=== PATIENT | female | born 1990 | race Caucasian/White ===

== ENCOUNTER 2016-09-26 09:16 | Day surgery (SDC) | payer OTHER ==
[~2016-09-26 09:16] MED LIST: ACETAMINOPHEN 1000MG/100 ML PREMIX IV ONE; FAMOTIDINE 20MG TABLET PO ONE; MECLIZINE 25 MG TABLET PO ONE; METOCLOPRAMIDE 10 MG TABLET PO ONE
[2016-09-26] MEDS ORDERED: BUPIVACAINE 0.25% W/EPI MPF 30ML VIAL IVP ONE (14:20)
[2016-09-26] MEDS ORDERED: HYDROMORPHONE HCL 2 MG/ML VIAL IV ONE ×2 (14:20→14:29)
[2016-09-26] MEDS ORDERED: ACETAMINOPHEN/CODEINE TABLET PO ONE (14:20)
[2016-09-26] MEDS ORDERED: SEVOFLURANE 250 ML INH ONE (14:29)
[2016-09-26] MEDS ORDERED: ONDANSETRON HCL IV 4 MG/2 ML VIAL IVP ONE (14:29)
[2016-09-26] MEDS ORDERED: KETOROLAC 30 MG/ML VIAL IVP ONE (14:29)
[2016-09-26] MEDS ORDERED: GLYCOPYRROLATE 0.2 MG/ML ML IV ONE (14:29)
[2016-09-26] MEDS ORDERED: SCOPOLAMINE 1 PATCH TDSY TD ONE (14:29)
[2016-09-26] MEDS ORDERED: FENTANYL PF 100MCG/2ML VIAL IV ONE (14:29)
[2016-09-26] MEDS ORDERED: LIDOCAINE 2% MDV (20MG/ML) 20ML VIAL IV ONE (14:29)
[2016-09-26] MEDS ORDERED: NEOSTIGMINE 1 MG/1 ML,10ML VIAL IV ONE (14:29)
[2016-09-26] MEDS ORDERED: PROPOFOL 10 MG/ML VIAL IV ONE (14:29)
[2016-09-26] MEDS ORDERED: MIDAZOLAM HCL 2MG/2ML VIAL IV ONE (14:29)
[2016-09-26] MEDS ORDERED: ROCURONIUM BROMIDE 50MG/5ML VIAL IV ONE (14:29)
[2016-09-26] MEDS ORDERED: SUCCINYLCHOLINE 20 MG/ML 10ML IVP ONE (14:29)
--- NOTE | 2016-09-27 11:20 | Operative Note ---
DATE OF SURGERY: 09/26/2016. SURGEON: Dimitrios Doran D.O. REFERRING PHYSICIAN: Nikos Lopez D.O. PREOPERATIVE DIAGNOSIS: ACROMIOCLAVICULAR ARTHROSIS OF THE LEFT SHOULDER. POSTOPERATIVE DIAGNOSIS: ACROMIOCLAVICULAR ARTHROSIS OF THE LEFT SHOULDER. OPERATIVE PROCEDURE: Keith procedure of the left shoulder (resection of the left distal clavicle). DESCRIPTION OF PROCEDURE: This 26-year-old female was taken to the operating room and was placed in the supine position on the operating room table. A general anesthetic was administered. The patient was then placed in the beach chair position with all bony prominences well padded and the head well secured. The left shoulder was prepped with Hibiclens and draped in the usual sterile fashion. An incision was made overlying the acromioclavicular joint. Dissection was carried down through the skin and subcutaneous tissue. Hemostasis was obtained with the electrocautery. Self-retaining retractor was placed to expose the joint capsule, and a "T" type incision was made in the joint capsule. Subperiosteal elevation was performed over the distal clavicle. An oscillating saw was subsequently used to resect approximately 3/4 of a centimeter of the distal clavicle. A power rasp was then used to further smooth and contour the cut edge of bone. We discovered that we had resected satisfactory bone. The remainder of the disrupted acromioclavicular disc was removed. The wound was irrigated with lactated ringers solution. The periosteum and joint capsule were repaired with #1 Vicryl, and the subcutaneous tissue was closed with 4-0 Vicryl. The skin was closed with a running subcuticular 4-0 nylon suture. Sterile dressings were applied. The patient was taken to the recovery room in satisfactory condition. GROSS PATHOLOGY: This patient demonstrated disruption of the acromioclavicular disc of the left shoulder which was removed in the manner described above. Job Number: [id number] [facility]
== END 2016-09-26 10:30 | disposition home or self-care (01) ==
LOC: SUR 09:16
PROVIDERS: ATTEND Orthopaedic Surgery
DX: M19.012 Primary osteoarthritis, left shoulder (principal)
CPT/HCPCS: 23120; 00450; 81025; J1885; J2405; J3010; J1170; J0330; J2710

== ENCOUNTER 2017-03-31 14:34 | Emergency (ER) | payer OTHER ==
--- NOTE | 2017-03-31 15:16 | Emergency Department Record ---
History of Present Illness - General Chief Complaint: Dizziness Stated Complaint: DIZZINESS,NAUSEA,LOWER BACK PAIN,TIFFANIE Time Seen by Provider: 03/31/17 15:03 Source: Patient, Family Mode of Arrival: Ambulatory Limitations: No limitations - History of Present Illness Initial Comments: 27 yo female presents with back pain, RUQ, nausea that started Friday. No injury. The pain has come on gradually. The pain was first noted in the lower back but then noted in the RUQ and right flank. She has associated nausea. No fever. No diarrhea. Her appetite is poor. No fevers. No history of abdominal surgery. She now feels weak, tired, lightheaded and dizzy as well. MD Complaint: Other (RUQ pain, Back Pain) Onset/Timin -: Days(s) Timing: Gradual onset Description: Nausea History of Same: No History of Trauma: No Severity: Moderate Improves With: Nothing Worsens With: Nothing Associated Symptoms: Fever/chills, Other - [place] Coma Scale Eye Response: (4) Open spontaneously Motor Response: (6) Obeys commands Verbal Response: (5) Oriented [place] Total: 15 - Symptoms of Stroke Symptoms of stroke: Dizziness - Related Data Home Medications Medication Instructions Recorded Confirmed Last Taken Allopurinol [Allopurinol] 100 mg PO DAILY 03/31/17 03/31/17 Unknown Cyclobenzaprine HCl [Flexeril] 10 mg PO ASDIR 03/31/17 03/31/17 03/31/17 Escitalopram Oxalate [Lexapro] 10 mg PO DAILY 03/31/17 03/31/17 Unknown Naproxen [Naproxen] 500 mg PO ASDIR 03/31/17 03/31/17 Unknown Allergies Allergy/AdvReac Type Severity Reaction Status Date / Time hydrocodone bitartrate AdvReac NAUSEA AND Verified 03/31/17 14:53 [From Vicodin] VOMITING latex AdvReac RASH Verified 03/31/17 14:53 Travel Screening - Travel/Exposure Within Last 30 Days Have you traveled within the last 30 days?: No Review of Systems Constitutional: Reports: Malaise, Weakness. Denies: Chills, Fever Eyes: Denies: Eye discharge, Eye pain, Photophobia, Vision change ENT: Denies: Congestion, Throat pain Respiratory: Denies: Cough, Dyspnea, Hemoptysis, Stridor, Wheezes Cardiovascular: Denies: Chest pain, Palpitations, Syncope Endocrine: Reports: Fatigue. Denies: Polydipsia, Polyuria Gastrointestinal: Reports: As per HPI, Abdominal pain, Nausea, Vomiting. Denies : Constipation, Diarrhea, Hematemesis, Hematochezia Genitourinary: Denies: Abnormal menses, Dysuria, Urgency Musculoskeletal: Reports: As per HPI, Back pain. Denies: Arthralgia, Joint swelling, Myalgia Skin: Denies: Bruising, Change in color, Rash Neurological: Denies: Headache, Numbness, Tremors, Vertigo, Weakness Psychiatric: Denies: Anxiety Hematological/Lymphatic: Denies: Blood Clots, Easy bleeding, Easy bruising, Swollen glands Past Medical History - SOCIAL HISTORY Smoking Status: Former smoker Alcohol Use: None Drug Use: None - RESPIRATORY Hx Respiratory Disorders: No - CARDIOVASCULAR Hx Cardio Disorders: Yes - NEURO Hx Neuro Disorders: Yes Hx of Migraines: Yes (WEEKLY OR MONTHLY REST OR EXCEDRINE MIGRAINE) - GI Hx GI Disorders: No - Hx Genitourinary Disorders: No - ENDOCRINE Hx Endocrine Disorders: No - MUSCULOSKELETAL Hx Musculoskeletal Disorders: Yes Hx Arthritis: Yes Hx Fibromyalgia: Yes Hx Gout: Yes - PSYCH Hx Psych Problems: Yes Hx Anxiety: Yes - HEMATOLOGY/ONCOLOGY Hx Hematology/Oncology Disorders: No Family Medical History Any Significant Family History?: Yes Hx Alcohol Use: Grandparents Hx Heart Disease: Grandparents Hx Kidney Disease: Grandparents Physical Exam - General General Appearance: Alert, Oriented x3, Cooperative, No acute distress Limitations: No limitations - Head Head exam: Normal inspection - Eye Eye exam: Normal appearance. negative: Conjunctival injection, Scleral icterus - ENT ENT exam: Normal exam, Mucous membranes moist Ear exam: Normal external inspection Nasal Exam: Normal inspection Mouth exam: Normal external inspection - Neck Neck exam: Normal inspection - Respiratory Respiratory exam: Normal lung sounds bilaterally. negative: Respiratory distress - Cardiovascular Cardiovascular Exam: Normal rhythm, Normal heart sounds, Tachycardia Peripheral Pulses: 2+: Radial (R), Radial (L) - GI/Abdominal GI/Abdominal exam: Soft, Guarding (RUQ), Tenderness (The patient's abdomen is soft but tender RUQ) - Rectal Rectal exam: Deferred - exam: Deferred - Extremities Extremities exam: Normal inspection, Full ROM, Normal capillary refill. negative: Tenderness - Back Back exam: Reports: Normal inspection, CVA tenderness (R), Full ROM. Denies: Muscle spasm, Rash noted, Tenderness - Neurological Neurological exam: Alert, Normal gait, Oriented X3 - Psychiatric Psychiatric exam: Normal affect, Normal mood - Skin Skin exam: Dry, Intact, Normal color, Warm Course Vital Signs 03/31/17 14:47 Temperature 98.0 F Pulse Rate 133 H Respiratory 22 Rate Blood Pressure 148/99 Pulse Ox 100 - Reevaluation(s) Reevaluation #1: Lab notified WBC count 27 Lactic acid and Cultures ordered 03/31/17 15:33 No acute changes on the CMP or Lipase. Glucose is 150 03/31/17 15:58 The lactic acid is normal at 1.2 The US is consistent with acute cholecystitis with thicken wall and mild CBC dilatation at 6.6mm with gall stones. 03/31/17 18:10 Dr Díaz paged. 03/31/17 18:[address] Díaz He will accept as a transfer [place] [facility] [place] the tachycardia, elevated WBC and US CW acute cholecystitis. 03/31/17 18:21 Medical Decision Making - Lab Data Result diagrams: 03/31/17 15:00 03/31/17 15:00 Disposition Disposition: Transfer Clinical Impression: Acute cholecystitis Disposition: Acute Care Hospital Transfer Transfer To: [facility] Reason For Transfer: Acute cholecystitis Accepting Physician: Bre Time Discussed w/Accepting Physician: 18:22 Condition: (2) Stable Forms: Patient Portal Access Time of Disposition: 18:22 Quality - Quality Measures Quality Measures: N/A - Blood Pressure Screening Does Patient Have Any of the Following: No Blood Pressure Classification: Hypertensive Reading Systolic Measurement: 148 Diastolic Measurement: 99 Screening for High Blood Pressure: < Pre-Hypertensive BP, F/U Documented > [ [id number]] Pre-Hypertensive Follow-up Interventions: Referral to alternative/primary care provider.
[2017-03-31 15:23] LABS: HEMATOCRIT 38.7 % (35.0-47.0); HEMOGLOBIN 12.2 gm/dl (11.6-16.0); MEAN CELL VOLUME 85.1 fl (81-97); MEAN CORPUSCULAR HEMOGLOBIN 26.8 pg (27-33); MEAN CORPUSCULAR HGB CONC 31.5 g/dl (32-36); MEAN PLATELET VOLUME 10.3 fl (7.4-10.4); PLATELET COUNT 393 K/uL (130-400); RED BLOOD COUNT 4.55 M/uL (3.80-5.40); RED CELL DISTRIBUTION WIDTH 15.8 % (11.5-14.5)
[2017-03-31] MEDS: 0.9 % SODIUM CHLORIDE 1,000 ML BAG IV ONE ×2 (15:27→19:09)
[2017-03-31] MEDS: ONDANSETRON HCL IV 4 MG/2 ML VIAL IV ONE (15:27)
[2017-03-31 15:38] LABS: ALBUMIN 3.8 g/dL (4.0-5.0); ALKALINE PHOSPHATASE 108 U/L (35-104); ALT/SGPT 23 U/L (<33); AST/SGOT 23 U/L (10.0-35.0); BLOOD UREA NITROGEN 8 mg/dL (6-20); CREATININE 0.8 mg/dL (0.5-0.9); EST GLOMERULAR FILTRATION RATE > 60 mL/min; GLUCOSE,RANDOM 159 mg/dL (74-109); LIPASE 16 U/L (13-60); TOTAL PROTEIN 7.7 g/dL (6.6-8.7)
[2017-03-31 15:43] LABS: WHITE BLOOD COUNT W/O DIFF 27.7 K/uL (4.2-12.2)
[2017-03-31] MEDS: MORPHINE SULFATE 5 MG/ML PFS IVP ONE (16:18)
[2017-03-31] MEDS: ACETAMINOPHEN 1,000 MG/100 ML BTL IVPB ONE (16:31)
[2017-03-31] MEDS: CEFTRIAXONE SODIUM 2 GM in 0.9 % SODIUM CHLORIDE 100ML 100 ML IVPB ONE (18:23)
[2017-03-31] MEDS: METRONIDAZOLE IVPB 500 MG/100 ML BAG IVPB ONE (19:09)
[2017-03-31 19:35] LABS: URINE APPEARANCE CLEAR; URINE BILIRUBIN NEGATIVE (NEGATIVE); URINE BLOOD LARGE (NEGATIVE); URINE COLOR YELLOW; URINE GLUCOSE (UA) NEGATIVE (NEGATIVE); URINE KETONE NEGATIVE (NEGATIVE); URINE LEUKOCYTE ESTERASE SMALL (NEGATIVE); URINE NITRITE NEGATIVE (NEGATIVE); URINE PROTEIN NEGATIVE (NEGATIVE); URINE UROBILINOGEN 0.2 E.U./dL (0.20 - 1.00)
[2017-03-31 19:47] LABS: URINE RBC 36 - 50 (NONE SEEN)
[2017-03-31 19:48] LABS: URINE BACTERIA NONE SEEN; URINE EPITHELIAL CELLS 0 - 2 (FEW); URINE WBC 0 - 2 (0-2/hpf)
--- NOTE | 2017-04-02 07:45 | ULTRASOUND REPORT ---
EXAM: ULTRASOUND OF THE ABDOMEN HISTORY: PATIENT HAS RIGHT UPPER QUADRANT PAIN AND BACK PAIN TIMES THREE DAYS. PATIENT HAS NAUSEA AND DIZZINESS. TECHNIQUE: Real-time smith scale ultrasound examination of the abdomen was performed. No comparison studies are available. FINDINGS: The pancreatic mid body is visualized. The tail and head are not visualized due to overlying bowel. The liver demonstrate normal size and contour. No focal hepatic lesions are identified. Contour and echotexture of the liver is within normal limits. No significant intrahepatic biliary ductal dilatation is noted. The right kidney measures 11.4 cm x 4.0 cm x 4.8 cm. The left kidney measures 9.8 cm x 5.5 cm x 5.6 cm. The contour, size and echotexture are within normal limits. There is no sonographic evidence of hydronephrosis or hydroureter. The aorta is grossly unremarkable. The examination is limited due to patient's body habitus. The gallbladder demonstrates multiple echogenic foci with posterior shadowing consistent with gallstones. The largest measures 3.2 cm in diameter. Gallbladder wall thickness measures 3.8 mm (normal being less than or equal to 3 mm). No pericholecystic fluid is noted. The patient has positive sonographic Beth's sign. The common bile duct measures 6.8 mm in diameter (normal being less than or equal to 6 mm). The spleen is unremarkable. Inferior vena cava is not clearly visualized. IMPRESSION: FINDINGS SUSPICIOUS FOR ACUTE CHOLECYSTITIS WITH GALLSTONES DISCUSSED ABOVE. IF THERE IS FURTHER CLINICA CONCERN THEN A NUCLEAR SCINTIGRAPHIC HIDA SCAN CAN BE OBTAINED FOR FURTHER EVALUATION. JOB NUMBER: [id number] MTDD
== END 2017-03-31 20:40 | disposition short-term general hospital (02) ==
LOC: ER 14:34
DX: K80.00 Calculus of gallbladder with acute cholecystitis without obstruction (principal); R10.11 Right upper quadrant pain; R11.0 Nausea; R42 Dizziness and giddiness
CPT/HCPCS: 99285 ×2; 96365; 96366; 96375; 96361; 83605; 83690; 80053; 81001; 84703; 85027; 76700; J2405; J7030